=== PATIENT | male | born 1990 | race African-American/Black ===

== ENCOUNTER 2023-03-22 11:09 | Emergency (ER) | payer SELFPAY ==
[2023-03-22] MEDS ORDERED: Lidocaine 1% 10 ML MDV INJECT ONE (11:30)
[2023-03-22] MEDS ORDERED: Bacitracin Oint 1 GM U/D Packet TOP ONE (11:30)
== END 2023-03-22 12:19 | disposition home or self-care (01) ==
LOC: JP.ED 11:09
DX: S61.211A Laceration without foreign body of left index finger without damage to nail, initial encounter (principal); Z91.013 Allergy to seafood; Z87.891 Personal history of nicotine dependence; W26.0XXA Contact with knife, initial encounter
CPT/HCPCS: 12001; 12041; 99282